=== PATIENT | female | born 2000 | race Caucasian/White ===

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

== ENCOUNTER → 2021-06-09 01:20 | Observation (INO) ==
[2021-06-09 00:48] LABS: Amphetamine Screen,Urine Negative ng/mL (Cutoff=1000); Barbiturate Screen,Urine Negative ng/mL (Cutoff=200); Benzodiazepines Screen,Urine Negative ng/mL (Cutoff=200); Cannabinoid Screen,Urine Negative ng/mL (Cutoff = 50); Cocaine Screen,Urine Negative ng/mL (Cutoff= 300); Opiate Screen,Urine Negative ng/mL (Cutoff=300); Phencyclidine Screen,Urine Negative ng/mL (Cutoff=25)
[~2021-06-09 01:20] MED LIST: Ringers Solution, Lactated 1,000 ML ONE
== END | disposition home or self-care (01) ==
LOC: 1NENULAB
PROVIDERS: ADMIT Student in an Organized Health Care Education/Training Program; ATTEND Student in an Organized Health Care Education/Training Program

== ENCOUNTER 2021-06-27 08:00 | Inpatient (IN) ==
[2021-06-27] MEDS ORDERED: *HR* Nalbuphine 10 MG/ML AMPUL IV PRN (08:44)
[2021-06-27] MEDS ORDERED: Lidocaine 1% 20 ML MDV ID PRN (08:44)
[2021-06-27] MEDS ORDERED: Naloxone 0.4 MG/ML INJ IVP PRN (08:44)
[2021-06-27] MEDS ORDERED: Metoclopramide 10 MG/2 ML VIAL IVP PRN (08:44)
[2021-06-27] MEDS ORDERED: Famotidine 20 MG/2 ML VIAL IVP PRN (08:44)
[2021-06-27] MEDS ORDERED: Ondansetron 4 MG/2 ML VIAL IVP PRN (08:44)
[2021-06-27] MEDS ORDERED: Azithromycin 500 MG in 0.9 % Sodium Chloride 250 ML IVPB PRN (08:44)
[2021-06-27] MEDS ORDERED: Oxytocin 20 units/ LR 1000 mL 20 UNIT/1,000 ML BAG IVC SCH ×2 (08:45→23:02)
[2021-06-27] MEDS ORDERED: Ringers Solution, Lactated 1,000 ML IVC SCH (08:45)
[2021-06-27] MEDS ORDERED: EPHEDrine 50 MG/ML VIAL IVP PRN (09:25)
[2021-06-27] MEDS ORDERED: Epidural Premix (fent/bupiv) 110 ML EP SCH (09:30)
[2021-06-27 09:37] LABS: Basophils % 0.3 %; Eosinophils # 0.1 K/mcL (0.0-0.6); Hematocrit 37.3 % (35.3-44.9); Hemoglobin 12.4 g/dL (11.5-15.4); Immature Granulocytes % 0.3 % (0-4); Lymphocytes # 2.8 K/mcL (0.6-4.6); Lymphocytes % 30.7 %; Mean Corpuscular HGB Conc 33.2 g/dL (31.6-35.5); Mean Corpuscular Hemoglobin 30.3 pg (28.0-33.3); Mean Corpuscular Volume 91.2 fL (83.0-100.0); Mean Platelet Volume 11.3 fL (9.4-12.4); Monocytes # 0.7 K/mcL (0.0-1.3); Monocytes % 7.3 %; Neutrophils # 5.6 K/mcL (1.6-8.9); Platelet Count 269 K/mcL (140-400); Red Blood Count 4.09 M/mcL (3.82-4.97); Red Cell Distribution Width 15.1 % (11.5-14.5); Segmented Neutrophils % 60.4 %; White Blood Count 9.2 K/mcL (4.3-11.1)
[2021-06-27 10:07] LABS: Influenza A PCR Negative (Negative); Influenza B PCR Negative (Negative); Resp. Syncytial Virus PCR Negative (Negative)
[2021-06-27 10:09] LABS: Amphetamine Screen,Urine Negative ng/mL (Cutoff=1000); Barbiturate Screen,Urine Negative ng/mL (Cutoff=200); Benzodiazepines Screen,Urine Negative ng/mL (Cutoff=200); Cannabinoid Screen,Urine Negative ng/mL (Cutoff = 50); Cocaine Screen,Urine Negative ng/mL (Cutoff= 300); Opiate Screen,Urine Negative ng/mL (Cutoff=300); Phencyclidine Screen,Urine Negative ng/mL (Cutoff=25)
[2021-06-27 10:41] LABS: SARS-CoV-2 by PCR (In House) Negative (Negative)
[2021-06-27] MEDS ORDERED: *HR* FentaNYL (PF) 100 MCG/2 ML VIAL ONE (12:36)
[2021-06-27] MEDS ORDERED: Lidocaine/EPI 1:200k 2% PF 20 ML VIAL ONE (12:37)
[2021-06-27] MEDS ORDERED: Acetaminophen 325 MG TABLET PO ONE (19:40)
[2021-06-27] MEDS ORDERED: Ondansetron ODT 4 MG TAB.RAPDIS SL PRN (23:02)
[2021-06-27] MEDS ORDERED: Measles/Mumps/Rubella Vacc 0.5 ML VIAL SQ PRN (23:02)
[2021-06-27] MEDS ORDERED: Lanolin 7 G OINT...G. TP PRN (23:02)
[2021-06-27] MEDS ORDERED: Benzocaine/Menthol 56 GM AEROSOL SPRAY TP PRN (23:02)
[2021-06-28] MEDS: Ibuprofen 600 MG TABLET PO SCH ×4 (00:40→19:54)
[2021-06-28] MEDS: Acetaminophen 325 MG TABLET PO SCH ×2 (06:42→19:53)
[2021-06-28] MEDS: Prenatal Vit/FA 1 EACH TABLET PO SCH (08:49)
[2021-06-28] MEDS ORDERED: NON-FORMULARY MEDICATION 1 EACH EACH (Ferrous Sulfate 325 MG) PO SCH (09:00)
[2021-06-29] MEDS: Ibuprofen 600 MG TABLET PO SCH (03:34)
[2021-06-29] MEDS: Acetaminophen 325 MG TABLET PO SCH (03:34)
[2021-06-29] MEDS: Prenatal Vit/FA 1 EACH TABLET PO SCH (08:18)
[2021-06-29] MEDS ORDERED: Etonogestrel 68 MG IMPLANT IL ONE (09:35)
[2021-06-29] MEDS ORDERED: Lidocaine/EPI 1:100k 1% 20 ML VIAL INFILT ONE (09:40)
[2021-06-29 11:52] VITALS: TEMP 98; O2SAT 98
[2021-06-29 14:51] VITALS: BP 120/79; PULSE 99
== END 2021-06-29 14:51 | disposition home or self-care (01) | DRG 560 ==
LOC: 1NENULAB 08:07 → 1NENUOBS 22:55
PROVIDERS: ADMIT Obstetrics & Gynecology; ATTEND Obstetrics & Gynecology